=== PATIENT | female | born 1960 | race Hispanic/Latino ===

== ENCOUNTER 2018-11-25 09:02 | Outpatient (CLI) | payer OTHER ==
--- NOTE | 2018-11-26 09:32 | Mammography Report ---
BONE DEXA:11/25/18 CLINICAL: Postmenopausal COMPARISON: 03/14/16 TECHNIQUE: Two site bone DEXA performed on an HoloHemote[employer] scanner. FINDINGS: The average BMD of the lumbar spine L1-L4 is 0.922g/cm squared with a T-score of -1.1 and a Z-score of +0.2. This compares to 0.875 g/cm squared on the last exam and represents a +5.4% change in BMD. The average BMD of the left hip is 0.800g/cm squared with a T-score of -1.2 and a Z-score of -0.3.This compares to 0.803g/cm squared on the last exam and represents a -0.3% change in BMD. IMPRESSION: 1.WHO classification: Osteopenia with increased fracture risk based on L-spine and left hip measurements. 2. A slight decline in left hip BMD but a moderate improvement in spine BMD compared to baseline. 3.The FRAX 10 year fracture probability for a major osteoporotic fracture is 8.3%. 4.The FRAX 10 year fracture probability for hip fracture is 1.1%. Note: FRAX version 3.01. Fracture probability calculated for an untreated patient. Fracture probability may be lower if the patient has received treatment. RECOMMENDATION: Clinical correlation and routine screening. DEFINITIONS: BMD = Bone Mineral Density T-score = BMD related to mean peak bone mass of young adult (mean expressed in Standard Deviation) Z-score = Age matched BMD expressed in SD World Health Organization (WHO) Diagnostic Criteria Normal T-score > -1 SD Osteopenia T-score between -1 and -2.4 SD Osteoporosis T-score -2.5 SD or below NOTE: BMD is not the only risk factor for fracture; also consider factors such as the patient's age, risk of falling, previous osteoporotic fracture, family history of osteoporotic fractures, current smoker, and low body weight. All treatment decisions require clinical judgment and consideration of individual patient factors, including patient preferences, comorbidities, previous drug use and wrist factors not captured in the FRAX model (e.g. frailty, falls, vitamin D deficiency, increased bone turnover, interval significant decline in BMD). Z-scores are not calculated if >80 years of age.
== END 2018-11-25 09:03 | disposition home or self-care (01) ==
LOC: MAMMO 09:02
PROVIDERS: ATTEND Internal Medicine Gastroenterology
DX: M85.80 Other specified disorders of bone density and structure, unspecified site (principal); K59.09 Other constipation; K21.9 Gastro-esophageal reflux disease without esophagitis; Z78.0 Asymptomatic menopausal state; Z90.710 Acquired absence of both cervix and uterus; Z90.49 Acquired absence of other specified parts of digestive tract
CPT/HCPCS: 77080